=== PATIENT | male | born 1980 | race Caucasian/White ===

== ENCOUNTER 2016-09-12 13:36 | Emergency (ER) | payer OTHER ==
[~2016-09-12] VITALS: Ht 180.3 cm; Wt 95.5 kg
[2016-09-12] MEDS ORDERED: PERC7.5T3 PO (13:54)
[2016-09-12] MEDS ORDERED: DULO1CAP PO (13:54)
[2016-09-12] MEDS ORDERED: ATOR1TAB21 PO (13:54)
[2016-09-12] MEDS ORDERED: METO50TA2 PO (13:54)
[2016-09-12] MEDS ORDERED: GABA600T PO (13:54)
[2016-09-12] MEDS ORDERED: CELE-19 PO (13:54)
[2016-09-12 15:18] LABS: BASO % 0.6 % (0.0-1.0); EOS # 0.1 K/mm3 (0.0-0.50); EOS % 0.9 % (0.0-3.0); LARGE UNSTAINED CELL # 0.1 K/mm3 (0.0-0.4); LYMPH # 2.3 K/mm3 (1.5-4.5); LYMPH % 32.5 % (24.0-44.0); MEAN CORPUSCULAR HEMOGLOBIN 31.8 pg (27.0-33.0); MEAN CORPUSCULAR HGB CONC 35.6 g/dl (32.0-36.5); MEAN CORPUSCULAR VOLUME 89.2 fl (80.0-96.0); MONO # 0.4 K/mm3 (0.0-0.8); MONO % 6.5 % (0.0-5.0); NEUTROPHILS # 3.8 K/mm3 (1.8-7.7); NEUTROPHILS % 57.5 % (36.0-66.0); OSMOLALITY SERUM 291 MOSM/KG (275-295); PLATELET COUNT, AUTOMATED 257 k/mm3 (150-450); RED CELL DISTRIBUTION WIDTH 12.4 % (11.5-14.5); WHITE BLOOD COUNT 6.7 K/mm3 (4.0-10.0)
[2016-09-12 15:34] LABS: ALBUMIN 3.7 GM/DL (3.2-5.2); ALBUMIN/GLOBULIN RATIO 1.19 (1.00-1.93); ALKALINE PHOSPHATASE 37 U/L (45-117); ALT/SGPT 32 U/L (12-78); ANION GAP 9 MEQ/L (8-16); AST/SGOT 25 U/L (15-37); BILIRUBIN,DIRECT 0.2 MG/DL (0.0-0.2); BILIRUBIN,TOTAL 0.7 MG/DL (0.2-1.0); BLOOD UREA NITROGEN 17 MG/DL (7-18); CALCIUM LEVEL 8.7 MG/DL (8.5-10.1); CARBON DIOXIDE LEVEL 26 MEQ/L (21-32); CHLORIDE LEVEL 107 MEQ/L (98-107); CREATININE FOR GFR 1.25 MG/DL (0.70-1.30); GLOMERULAR FILTRATION RATE > 60.0 (>60); GLUCOSE, FASTING 89 MG/DL (70-105); SODIUM LEVEL 142 MEQ/L (136-145); TOTAL PROTEIN 6.8 GM/DL (6.4-8.2)
[2016-09-12 19:31] VITALS: BP 143/90
== END 2016-09-12 19:17 | disposition home or self-care (01) ==
LOC: M ED 15:23
DX: R42 Dizziness and giddiness (principal); I10 Essential (primary) hypertension; F41.9 Anxiety disorder, unspecified; M54.9 Dorsalgia, unspecified; F17.200 Nicotine dependence, unspecified, uncomplicated; Z79.899 Other long term (current) drug therapy
CPT/HCPCS: 36415; 70544; 70551; 80048; 80076; 82140; 83930; 85025; 99284; G0480

== ENCOUNTER 2019-02-06 07:14 | Day surgery (SDC) | payer OTHER ==
[~2019-02-06] VITALS: Ht 180.3 cm; Wt 94.3 kg
[~2019-02-06 07:14] MED LIST: ALPR0.5T3 PO; AMBI5TAB PO; ATOR1TAB21 PO; BUPR300T34 PO; CELE1CAP4 PO; DULO1CAP4 PO; GABA600T4 PO; LAMO200T54 PO; LIDOCAINE 2% INJ 100 MG/5 ML SDV (FOR ANES.) As Ordered ONE; METO50TA7 PO; PERC5TAB12 PO; PERC7.5T11 PO; PROPOFOL 200 MG/20 ML VIAL As Ordered ONE; SERT-138 PO
[2019-02-06] MEDS ORDERED: NS 1,000 ML IV ONE (07:30)
[2019-02-06] MEDS ORDERED: LABETALOL HCL 100 MG/20 ML VIAL As Ordered ONE (08:36)
--- NOTE | 2019-02-06 08:56 | ROOR ---
Patient Name: Nehemias Villarreal Procedure Date: 02/06/2019 8:32 AM Date of : 1980 Age: 38 Room: [facility] Gender: Male Note Status: Finalized Procedure: Upper Endoscopy + Biopsies Indications: Heartburn, Exclusion of Burgess's esophagus Providers: Landen Jackson MD Referring MD: [facility] [address], Admin., Arnulfo Estrella Requesting Provider: Medicines: Monitored Anesthesia Care Complications: No immediate complications. Procedure: Pre-Anesthesia Assessment: - The heart rate, respiratory rate, oxygen saturations, blood pressure, adequacy of pulmonary ventilation, and response to care were monitored throughout the procedure. The Endoscope was introduced through the mouth, and advanced to the second part of duodenum. The upper GI endoscopy was accomplished without difficulty. The patient tolerated the procedure well. Findings: The Z-line was variable and was found 40 cm from the incisors. Multiple biopsies were obtained with cold forceps for evaluation to rule out Burgess's Esophagus randomly at the gastroesophageal junction. A small hiatal hernia was present. No other significant abnormalities were identified in a careful examination of the stomach. The exam of the duodenum was otherwise normal. Impression: - Z-line variable, 40 cm from the incisors. - Small hiatal hernia. - Multiple biopsies were obtained at the gastroesophageal junction. - The examination was otherwise normal. Recommendation: - Patient has a contact number available for emergencies. The signs and symptoms of potential delayed complications were discussed with the patient. Return to normal activities tomorrow. Written discharge instructions were provided to the patient. - High fiber diet. - Discharge patient to home. - Follow an antireflux regimen. - Continue present medications. - Await pathology results. - Telephone GI clinic for pathology results in 1 week. - Return to referring physician. - The findings and recommendations were discussed with the patient's family. Landen Jackson MD Landen Jackson MD 02/06/2019 8:55:51 AM Electronically signed by Landen Jackson MD Number of Addenda: 0 Note Initiated On: 02/06/2019 8:32 AM Estimated Blood Loss: Estimated blood loss: none.
[2019-02-06] MEDS ORDERED: fentaNYL 100 MCG/2 ML INJECTION (J3010) As Ordered ONE (08:57)
[2019-02-06] MEDS ORDERED: PROPOFOL 200 MG/20 ML VIAL As Ordered ONE (09:08)
--- NOTE | 2019-02-06 09:12 | ROOR ---
Patient Name: Nehemias Villarreal Procedure Date: 02/06/2019 8:34 AM Date of : 1980 Age: 38 Room: [facility] Gender: Male Note Status: Finalized Procedure: Total Colonoscopy to Cecum + ileoscopy + Bx Indications: Chronic diarrhea, Clinically significant diarrhea of unexplained origin Providers: Landen Jackson MD Referring MD: Arron MEADOWS [facility], Admin[facility] Arnulfo Estrella Requesting Provider: Medicines: Monitored Anesthesia Care Complications: No immediate complications. Procedure: Pre-Anesthesia Assessment: - The heart rate, respiratory rate, oxygen saturations, blood pressure, adequacy of pulmonary ventilation, and response to care were monitored throughout the procedure. The Colonoscope was introduced through the anus and advanced to the cecum, identified by appendiceal orifice and ileocecal valve. The colonoscopy was performed without difficulty. The patient tolerated the procedure well. The quality of the bowel preparation was excellent. Findings: The perianal and digital rectal examinations were normal. Non-bleeding internal hemorrhoids were found during retroflexion. The hemorrhoids were mild, small and Grade I (internal hemorrhoids that do not prolapse). No other significant abnormalities were identified in a careful examination of the remainder of the colon. The terminal ileum appeared normal. Biopsies for histology were taken with a cold forceps from the cecum, ascending colon, transverse colon and descending colon for evaluation of microscopic colitis. The exam was otherwise without abnormality. Impression: - Non-bleeding internal hemorrhoids. - The examined portion of the ileum was normal. - The examination was otherwise normal. - Biopsies were taken with a cold forceps from the cecum, ascending colon, transverse colon and descending colon for evaluation of microscopic colitis. - The exam was otherwise normal to the cecum. Recommendation: - Patient has a contact number available for emergencies. The signs and symptoms of potential delayed complications were discussed with the patient. Return to normal activities tomorrow. Written discharge instructions were provided to the patient. - High fiber diet. - Discharge patient to home. - Continue present medications. - Await pathology results. - Telephone GI clinic for pathology results in 1 week. - Repeat colonoscopy at age 48 for screening purposes. - Return to referring physician. - The findings and recommendations were discussed with the patient's family. Landen Jackson MD Landen Jackson MD 02/06/2019 9:12:25 AM Electronically signed by Landen Jackson MD Number of Addenda: 0 Note Initiated On: 02/06/2019 8:34 AM Estimated Blood Loss: Estimated blood loss: none.
[2019-02-06 09:56] VITALS: BP 143/104
== END 2019-02-06 09:56 | disposition home or self-care (01) ==
LOC: M OPP 07:14
PROVIDERS: ATTEND Internal Medicine Gastroenterology
DX: R19.7 Diarrhea, unspecified (principal); K64.0 First degree hemorrhoids; R12 Heartburn; K22.8 Other specified diseases of esophagus; K44.9 Diaphragmatic hernia without obstruction or gangrene; I10 Essential (primary) hypertension; E78.5 Hyperlipidemia, unspecified; M54.89 Other dorsalgia; F32.9 Major depressive disorder, single episode, unspecified; F41.9 Anxiety disorder, unspecified; F43.10 Post-traumatic stress disorder, unspecified; G43.909 Migraine, unspecified, not intractable, without status migrainosus; F17.210 Nicotine dependence, cigarettes, uncomplicated; F12.10 Cannabis abuse, uncomplicated; Z79.899 Other long term (current) drug therapy
CPT/HCPCS: 43239; 45380; 88305; J3010